=== PATIENT | male | born 1970 | race Caucasian/White ===

== ENCOUNTER 2017-02-25 10:50 | Emergency (ER) | payer OTHER | END 2017-02-25 13:28 | disposition home or self-care (01) | LOC: ER1 10:50 | DX: S39.012A Strain of muscle, fascia and tendon of lower back, initial encounter (principal); M54.30 Sciatica, unspecified side; R60.0 Localized edema; K21.9 Gastro-esophageal reflux disease without esophagitis; Z91.041 Radiographic dye allergy status; Z79.899 Other long term (current) drug therapy; X58.XXXA Exposure to other specified factors, initial encounter | CPT/HCPCS: 72131; 81001; 87086; 93971; 96372; 99284; J1100; J1885 ==